=== PATIENT | male | born 1960 | race Caucasian/White ===

== ENCOUNTER 2023-09-27 12:10 | Emergency (ER) | payer MEDICARE, OTHER, SELFPAY ==
[2023-09-27 12:22] VITALS: BP 159/97
[2023-09-27 13:00] VITALS: BMI 24.4
[2023-09-27 13:03] LABS: % Basophils 0.6 % (0-2); % Immature Granulocytes 0.3 % (0-0.5); % Lymphocytes 40.1 % (20.5-51.1); % Monocytes 12.1 % (1.7-9.3); % Neutrophils 45.9 % (42.2-75.2); Absolute Lymphocytes 1.3 10^3/uL (1.2-3.4); Absolute Monocytes 0.4 10^3/uL (0.1-0.6); Absolute Neutrophils 1.4 10^3/uL (1.4-6.5); Hematocrit 40.2 % (39.0-52.0); Hemoglobin 13.4 g/dL (13.0-18.0); Mean Corp Hgb Conc. 33.3 g/dL (33.0-37.0); Mean Corpuscular Hgb 30.7 pg (27.0-31.0); Mean Platelet Volume 9.9 fL (7.4-10.4); Nucleated Red Blood Cells % 0 % (-); Platelet Count 191 10^3/uL (130-400); Red Blood Cell Count 4.37 10^6/uL (4.70-6.10); Red Cell Dist. Width 13.8 % (11.5-14.5); White Blood Cell Count 3.1 10^3/uL (4.8-10.8)
[2023-09-27 13:52] LABS: ALT (SGPT) 20 U/L (0-50); AST (SGOT) 32 U/L (17-59); Albumin 4.1 g/dl (3.5-5.0); Alkaline Phosphatase 88 U/L (38-126); Blood Urea Nitrogen 15 mg/dl (9-20); Calcium 8.7 mg/dl (8.4-10.2); Carbon Dioxide 27 mmol/L (22-30); Chloride 107 mmol/L (98-107); Estimated Creatinine Clearance 112 ml/min; Glucose 87 mg/dl (70-99); Potassium 4.4 mmol/L (3.5-5.1); Sodium 137 mmol/L (135-145); Total Bilirubin 0.4 mg/dl (0.2-1.3); Total Protein 6.5 g/dl (6.3-8.2); eGFR > 60.00
[2023-09-27 13:54] LABS: TSH Reflex To Free T4 0.87 uIU/ml (0.47-4.68)
--- NOTE | 2023-09-27 13:59 | ED.GENMED ---
History of Present Illness
General
Chief Complaint: Blood Pressure Problem
Source: patient
Exam Limitations: none
Time Seen by Provider: 09/27/23 12:33
Nursing documentation reviewed up to this point in time: agreed with
Travel History
Have you had any contact with someone who has COVID-19?: No
Do you have any symptoms of coronavirus? Fever > 100 degrees, chills, cough, shortness of breath, sore throat, loss of taste or smell, muscle aches, or headache?: No
History of Present Illness
History of Present Illness:
pt is a 63 y/o M with h/o htn
was on lisinopril 5 mg but says that he took himself off beause his bps were normal
then about a few weeksago he had some palpitations so he recently saw dr. friedman from cardiology who watned him to check his pressures twic ea day and write them down for 2 weeks and drop off the log
he gave him metoprolol tartrate 25 mg to take as needed whic hpt has not taken
he says that he was very stressed by something that happened at work yesterday. then he slept over a friends house where he was dog sitting and woke up and had to go home to his house to check on his cat
he felt a ltitle overwhelmed
his bp this mornig was 170/80 and he says he didn't feel well, was just not himself and he was cold and felt chills
no fever, sore throat, vomiting, cp, sob, cough, headache, blurry vision
pt then took lisoinpril and now feels better
Past History
Past History
ED Past Medical History: HTN
ED Past Surgical History: Orthopedic (Knee arthroscopy)
Social History
Tobacco: Non-smoker
Alcohol: Occasional
Drug: None
Personal: Single
Living: alone
Employment: Employed
Review of Systems
Review of Systems
Allergies reviewed?: Yes
All Other Systems: Not applicable
Phy Exam
Physical Exam
Physical Exam:
GENERAL: Alert , in no apparent distress
EYE: pupils equal and reactive
NECK: Supple
ENT: o/p clr, mmm.
CARDIAC: Regular rate and rhythm .
LUNGS: Clear breath sounds bilaterally, no acute respiratory distress, no wheezes/rales/rhonchi
ABDOMEN: Soft, without focal tenderness, no r/g, no cvat, normal bowel sounds
NEUROLOGICAL: Alert and oriented, no focal neuro deficits
SKIN: Warm and dry, skin intact.
MUSCULOSKELETAL: No edema, well perfused.
PSYCH: Normal and appropriate interaction.
Course
Orders/Labs/Results
Orders:
Orders
09/27/23 12:52
Complete Blood Count/With Diff Urgent
Comprehensive Metabolic Panel Urgent
TSH Reflex To Free T4 Urgent
09/27/23 13:32
Electrocardiogram (*1) Urgent
Reason for Study: Other
Other Reason for Exam: hypertension
EKG- Treatment ONCE
Abnormal Lab Results
09/27/23
12:52
WBC 3.1 L 10^3/uL
(4.8-10.8)
RBC 4.37 L 10^6/uL
(4.70-6.10)
Monocytes % 12.1 H %
(1.7-9.3)
09/27/23 12:52
09/27/23 12:52
Vital Signs
Initial and Last Documented VS:
Initial Vital Signs
Temp Pulse Resp BP Pulse Ox
97.7 F 65 18 159/97 97
09/27/23 12:22 09/27/23 12:22 09/27/23 12:22 09/27/23 12:22 09/27/23 12:22
Last Documented Vital Signs
Temp Pulse Resp BP Pulse Ox
97.7 F 65 18 130/77 98
09/27/23 12:22 09/27/23 12:22 09/27/23 12:22 09/27/23 14:19 09/27/23 13:00
MDM/Problems Addressed
Differential Diagnosis Includes:
hypertension, stress, anxiety
MDM/Problems Addressed:
63 y/o M h/o HTN but took himself off meds
this morning felt flushed and not well and took his bp and itwas elevated
he restarted his lisinopril and now feels better
had a lot of stress yetsterday
here he is asympatomtaic
no fever
bp came down to 130/80
ekg normal sinus no ishcemia
labs unreamrkable
d/c home
*Critical Care Note
Total Time (30-74mins, 75-104mins- exclusive of procedures): Not Applicable
ED Attending Note
-
Portions of this chart may have been created with voice recognition software.� Occasional wrong word or��sound alike� substitutions may have occurred due to the inherent limitations of voice recognition software.
Discharge Plan
Departure
Patient Disposition: Home (Routine Discharge)
Date of Disposition: 09/27/23
Time of Disposition: 14:07
Patient with high blood pressure during this ER visit?: Yes
Condition: Fair
Covid-19: Not Applicable
Discharge Problem:
Hypertension
Instructions: High Blood Pressure (DC)
Prescriptions:
No Action
lisinopril 5 mg Tablet
5 mg PO DAILY
metoprolol tartrate 25 mg Tablet
25 mg PO DAILY PRN (Reason: heart palpitations/tachycardia)
Referrals:
UNKNOWN - PT DOES,NOT KNOW [Family Provider] -
Activity Restrictions/Additional Instructions:
YOUR BLOOD PRESSURE CAME DOWN OVER TIME WHILE YOU WERE HERE.
YOU SHOULD TAKE YOUR LOG TO THE MOBILE HOME TECHNICIAN
IF YOU NEED TO TAKE A DOSE OF LISINOPRIL DAILY UNTIL YOU SEE THE MOBILE HOME TECHNICIAN THAT IS REASONABLE
RETURN FOR: SEVERE SYMPTOMS, PASSING OUT, CHEST PAIN, SHORTNESS OF BREATH, ETC.
YOUR EKG AND BLOOD WORK WAS REASSURING.
Interventions
Interventions:
*Risk Screen - Suicide Last Done: 09/27/23 13:00
*General Assessment Last Done: 09/27/23 12:22
*Neglect/Abuse Screening Last Done: 09/27/23 13:00
ED- Fall Risk Assessment Last Done: 09/27/23 13:00
*ED COVID-19 Vaccine History Last Done: 09/27/23 12:22
*Nursing Disposition Last Done: 09/27/23 14:24
ED- Cardiac Assessment Last Done: 09/27/23 13:00
ED- Neurological Assessment Last Done: 09/27/23 13:00
ED- Pulmonary Assessment Last Done: 09/27/23 13:00
Discharge Date and Time
Discharge Date/Time: 09/27/23 14:25
[2023-09-27 14:19] VITALS: BP 130/77
== END 2023-09-27 14:25 | disposition home or self-care (01) ==
LOC: EMR 12:10
PROVIDERS: Physician Assistant; EMERGENCY PHYSICIAN Emergency Medicine
DX: I10 Essential (primary) hypertension (principal)
CPT/HCPCS: 99284; 80053; 84443; 85025; 93005

== ENCOUNTER → 2024-05-28 07:32 | Outpatient (REF) | payer MEDICARE, OTHER, SELFPAY | LOC: PAVMRI 07:32 | PROVIDERS: ATTENDING PHYSICIAN Physician Assistant; FAMILY PHYSICIAN Family Medicine | DX: H90.A22 Sensorineural hearing loss, unilateral, left ear, with restricted hearing on the contralateral side (principal) | CPT/HCPCS: 70553; A9575 ==

== ENCOUNTER 2024-09-10 09:52 | Outpatient (RCR) | payer MEDICARE, OTHER, SELFPAY | END 2024-09-10 23:59 | disposition home or self-care (01) | LOC: ROT 09:52 | PROVIDERS: ATTENDING PHYSICIAN Orthopaedic Surgery | DX: M19.042 Primary osteoarthritis, left hand (principal); M19.049 Primary osteoarthritis, unspecified hand (principal); S63.502A Unspecified sprain of left wrist, initial encounter; S63.502D Unspecified sprain of left wrist, subsequent encounter; Z73.6 Limitation of activities due to disability; X58.XXXD Exposure to other specified factors, subsequent encounter; X58.XXXA Exposure to other specified factors, initial encounter | CPT/HCPCS: 97022; 97110; 97140; 97166; 97535 ==

== ENCOUNTER 2024-09-22 10:58 | Outpatient (RCR) | payer MEDICARE, OTHER, SELFPAY | END 2024-09-22 23:59 | disposition home or self-care (01) | LOC: ROT 10:58 | PROVIDERS: ATTENDING PHYSICIAN Orthopaedic Surgery | DX: M19.049 Primary osteoarthritis, unspecified hand (principal); S63.502A Unspecified sprain of left wrist, initial encounter; X58.XXXA Exposure to other specified factors, initial encounter; Z73.6 Limitation of activities due to disability; M19.042 Primary osteoarthritis, left hand; S63.502D Unspecified sprain of left wrist, subsequent encounter; X58.XXXD Exposure to other specified factors, subsequent encounter | CPT/HCPCS: 97018; 97022; 97110; 97140 ==

== ENCOUNTER 2025-02-07 11:14 | Emergency (ER) | payer MEDICARE, OTHER, SELFPAY ==
[2025-02-07 11:17] VITALS: BP 159/85
[2025-02-07 11:34] LABS: Hematocrit 43.3 % (39.0-52.0); Hemoglobin 14.5 g/dL (13.0-18.0); Mean Corp Hgb Conc. 33.5 g/dL (33.0-37.0); Mean Corpuscular Volume 92.9 fL (80.0-94.0); Nucleated Red Blood Cells % 0 % (-); Platelet Count 182 10^3/uL (130-400); Red Cell Dist. Width 13.4 % (11.5-14.5)
[2025-02-07 11:49] LABS: ALT (SGPT) 16 U/L (0-50); AST (SGOT) 22 U/L (17-59); Albumin 4.5 g/dl (3.5-5.0); Alkaline Phosphatase 84 U/L (38-126); Blood Urea Nitrogen 16 mg/dl (9-20); Calcium 8.7 mg/dl (8.4-10.2); Carbon Dioxide 26 mmol/L (22-30); Chloride 104 mmol/L (98-107); Glucose 120 mg/dl (70-99); Potassium 4.3 mmol/L (3.5-5.1); Sodium 134 mmol/L (135-145); Total Protein 6.9 g/dl (6.3-8.2); eGFR > 60.00
[2025-02-07 12:01] LABS: Troponin I < 0.012 ng/ml
[2025-02-07 12:15] VITALS: BP 146/93
[2025-02-07 12:18] VITALS: BMI 24.9
[2025-02-07 13:00] VITALS: BP 141/104
--- NOTE | 2025-02-07 13:06 | ED.GENMED ---
History of Present Illness
General
Chief Complaint: Dizziness
Time Seen by Provider: 02/07/25 12:38
History of Present Illness
History of Present Illness:
PAST MEDICAL HISTORY AND REVIEW OF OLD RECORDS
- The patient has a history of high blood pressure. The patient was seen here with high blood pressure concerns in the emergency department 2023.
Note:
CHIEF COMPLAINT(S)
Light-headedness and head pressure.
HISTORY OF PRESENT ILLNESS
The patient is a 64-year-old male who presented to the Emergency Room due to experiencing a sensation of light-headedness and pressure in the head. The symptoms started today and progressively worsened, although now the pressure persists more than
the dizziness. The patient described the head pressure as more concentrated around the sinus area. He recalls a previous similar episode many years ago after consuming alcohol. However, he clarified that this time he only had a couple of beers
yesterday at a baseball game, not to the point of intoxication. At work earlier today, he felt more light-headed, but feels somewhat improved currently. He was found to be neurologically intact upon examination.
REVIEW OF SYSTEMS
- Neurological: Light-headedness and head pressure.
- Respiratory: No reports of respiratory distress were discussed.
- Gastrointestinal: No reports of gastrointestinal symptoms were mentioned.
PHYSICAL EXAM
General: Alert, no acute distress.
Skin: Warm, dry.
Head: Normocephalic, atraumatic.
Neck: Supple, trachea midline.
Eye, Ears, Nose, Mouth, and Throat: Oral mucosa moist.
Cardiovascular: Normal peripheral perfusion, No edema.
Respiratory: Respirations are non-labored.
Gastrointestinal: Abdomen nondistended.
Back: Normal range of motion, Normal alignment.
Musculoskeletal: Normal range of motion, normal strength.
Neurological: Alert and oriented to person, place, time, and situation, No focal neurological deficit observed. Stroke scale is zero per examination. Normal finger-nose testing.
Psychiatric: Cooperative, appropriate mood but somewhat of a flat affect
PROBLEM LIST
Acute:
- Light-headedness
- Head pressure
PLAN
- Administration of intravenous fluids.
- Review of blood work which was mentioned as normal.
- A consideration for a CT scan of the brain due to head pressure.
- Continued monitoring for symptom improvement.
DIFFERENTIAL DIAGNOSIS
The Differential Diagnosis includes, in no particular order and is not limited to:
- Dehydration
- Sinusitis
- Hypertension
- Benign paroxysmal positional vertigo (BPPV)
- Orthostatic hypotension
- Migraine
- Tension headache
- Acute alcohol withdrawal
- Electrolyte imbalance
- Transient ischemic attack (TIA)
RADIOLOGY
- Considered CT head however the patient has no significant headache but reports some facial discomfort that he thinks may be a sinus issue and has a normal neurologic examination
EKG
- Sinus 57, normal axis, no acute ST abnormality, normal intervals
LABS
- White count hemoglobin are normal, sodium slightly low 134, glucose 120, troponin less than 0.012
UPDATE
-SUMMARY OF ENCOUNTER
The 64-year-old male patient presented to the Emergency Department with light-headedness and head pressure, which began earlier in the day. Upon evaluation, he was found to be neurologically intact, and his bloodwork, including sodium levels,
returned normal results. Intravenous fluids were administered. Cardiac monitoring did not reveal any alarming signs, and his blood pressure was noted to be slightly elevated but not concerning. Symptoms along the sinuses prompted consideration of
potential sinus congestion or another cause such as heartburn, for which famotidine (Pepcid) was considered.
PLAN
The plan involved administering a dose of famotidine for suspected heartburn and recommending the patient follow up with his primary care doctor as an outpatient.
INDEPENDENT REVIEW OF LABS AND INTERPRETATION OF TESTS
My independent review of the blood work showed results within normal limits, with sodium levels only marginally outside the normal range.
MEDICATION RECONCILIATION
Famotidine 20 mg was administered before discharge for heartburn relief.
MEDICAL DECISION MAKING
-Complexity of Data Reviewed:
The differential diagnosis considered possible causes such as dehydration, sinusitis, hypertension, benign paroxysmal positional vertigo (BPPV), orthostatic hypotension, migraine, tension headache, acute alcohol withdrawal, electrolyte imbalance,
and transient ischemic attack (TIA).
-Data:
Category 1
The following tests were reviewed or considered: electrolytes, specifically sodium level, as part of the blood work which was found to be within normal limits.
Category 3
Discussion of management with the patient included assessing the current lack of emergency findings and deciding on outpatient follow-up with primary care.
-Risk:
Consideration of Admission/Observation: Escalation of care, including admission/observation, was considered given the complexity and risk of the patients presenting complaint, exam findings, and/or their underlying comorbidities. However,
ultimately, I feel the patient is safe for outpatient management with close follow-up. Reasoning: Work-up is reassuring and does not reveal any acute life-threatening processes, the patients symptoms are well controlled upon reevaluation,
reexamination is reassuring, vitals are stable, patient agreeable with discharge, and reliable for follow-up.
DIAGNOSIS
- Lightheadedness
- Heartburn
Unclear etiology of patient's symptoms. On reassessment he does have some facial pressure. No clear indication for antibiotics for sinusitis. He appears well-hydrated. He did receive a liter of fluid. After he ate he had some of his typical
heartburn. Will give a dose of Pepcid prior to discharge.
Past History
Past History
ED Past Medical History: HTN
ED Past Surgical History: Orthopedic (Knee arthroscopy)
Social History
Tobacco: Non-smoker
Alcohol: Occasional
Drug: None
Personal: Single
Living: alone
Employment: Employed
Phy Exam
Physical Exam
Physical Exam:
See HPI
Course
Orders/Labs/Results
Orders:
Orders
02/07/25 11:19
Electrocardiogram (*1) Urgent
Reason for Study: Vertigo / Dizzy
EKG- Treatment ONCE
02/07/25 11:24
Complete Blood Count/With Diff Urgent
Comprehensive Metabolic Panel Urgent
Troponin I Urgent
02/07/25 13:34
0.9% Sodium Chloride 1000 ml [Nss] 1,000 ml IV BOLUS
02/07/25 15:51
Famotidine [Pepcid] 20 mg IV NOW STA
Abnormal Lab Results
02/07/25
11:24
RBC 4.66 L 10^6/uL
(4.70-6.10)
MCH 31.1 H pg
(27.0-31.0)
Sodium 134 L mmol/L
(135-145)
Glucose 120 H mg/dl
(70-99)
02/07/25 11:24
02/07/25 11:24
Vital Signs
Initial and Last Documented VS:
Initial Vital Signs
Temp Pulse Resp BP Pulse Ox
36.7 C 62 16 159/85 98
02/07/25 11:17 02/07/25 11:17 02/07/25 11:17 02/07/25 11:17 02/07/25 11:17
Last Documented Vital Signs
Temp Pulse Resp BP Pulse Ox
36.7 C 69 18 139/76 99
02/07/25 11:17 02/07/25 14:30 02/07/25 14:30 02/07/25 14:00 02/07/25 14:30
*Pulse Oximetry
SaO2: 99
Oxygen Mode of Delivery: Room air
Patient hypoxic: no
*Critical Care Note
Total Time (30-74mins, 75-104mins- exclusive of procedures): Not Applicable
ED Attending Note
-
Portions of this chart may have been created with voice recognition software.� Occasional wrong word or��sound alike� substitutions may have occurred due to the inherent limitations of voice recognition software.
Discharge Plan
Departure
Patient Disposition: Home (Routine Discharge)
Date of Disposition: 02/07/25
Time of Disposition: 15:51
Patient with high blood pressure during this ER visit?: Yes
Discharge Problem:
Lightheadedness
Instructions: Dizziness, BLOOD PRESSURE
Prescriptions:
No Action
lisinopril 5 mg Tablet
5 mg PO DAILY
Referrals:
NONE,* [Family Provider, Internal Medicine]
Activity Restrictions/Additional Instructions:
The cause of your symptoms is unclear. Other than slightly high blood pressure, your vital signs are normal. EKG was unremarkable. Cardiac blood work shows no sign of heart attack. Your white blood cell count is normal. Your hemoglobin level is
normal. Return here if worse or other concerns. We gave you dose of Pepcid prior to discharge and that we also gave you a liter of fluid.
Interventions
Interventions:
*Risk Screen - Suicide Last Done: 02/07/25 11:17
*General Assessment Last Done: 02/07/25 12:19
*Neglect/Abuse Screening Last Done: 02/07/25 11:17
*ED- Fall Risk Assessment Last Done: 02/07/25 12:10
*ED COVID-19 Vaccine History Last Done: 02/07/25 12:19
*Nursing Disposition Last Done: 02/07/25 16:27
ED- Neurological Assessment Last Done: 02/07/25 13:30
ED- Cardiac Assessment Last Done: 02/07/25 13:30
Discharge Date and Time
Discharge Date/Time: 02/07/25 16:27
Print Language: TURKMEN
[2025-02-07] MEDS: NSS 1000 IV (13:38)
[2025-02-07 14:00] VITALS: BP 139/76
[2025-02-07] MEDS: PEPCID 20 MG IV (15:59)
== END 2025-02-07 16:27 | disposition home or self-care (01) ==
LOC: EMR 11:14
PROVIDERS: Emergency Medicine; EMERGENCY PHYSICIAN Emergency Medicine
DX: R42 Dizziness and giddiness (principal); R12 Heartburn; I10 Essential (primary) hypertension
CPT/HCPCS: 96374; 96361; 99284; 80053; 84484; 85025; 93005

== ENCOUNTER 2025-02-11 19:41 | Emergency (ER) | payer MEDICARE, OTHER, SELFPAY ==
[2025-02-11 19:43] VITALS: BP 150/87
[2025-02-11 20:12] LABS: Hematocrit 43.4 % (39.0-52.0); Hemoglobin 14.9 g/dL (13.0-18.0); Mean Corp Hgb Conc. 34.3 g/dL (33.0-37.0); Mean Corpuscular Volume 91.6 fL (80.0-94.0); Nucleated Red Blood Cells % 0 % (-); Platelet Count 180 10^3/uL (130-400); Red Cell Dist. Width 13.2 % (11.5-14.5)
[2025-02-11 20:34] LABS: ALT (SGPT) 19 U/L (0-50); AST (SGOT) 27 U/L (17-59); Albumin 4.8 g/dl (3.5-5.0); Alkaline Phosphatase 76 U/L (38-126); Blood Urea Nitrogen 15 mg/dl (9-20); Calcium 8.6 mg/dl (8.4-10.2); Carbon Dioxide 25 mmol/L (22-30); Chloride 97 mmol/L (98-107); Glucose 128 mg/dl (70-99); Potassium 4.1 mmol/L (3.5-5.1); Sodium 131 mmol/L (135-145); Total Protein 7.5 g/dl (6.3-8.2); eGFR > 60.00
[2025-02-11 20:36] LABS: Lipase 66 U/L (23-300)
[2025-02-11 20:44] LABS: Troponin I < 0.012 ng/ml
--- NOTE | 2025-02-11 23:24 | ED.GENMED ---
History of Present Illness
General
Chief Complaint: Dizziness
Source: patient
Exam Limitations: none
Time Seen by Provider: 02/11/25 23:22
Nursing documentation reviewed up to this point in time: agreed with
History of Present Illness
History of Present Illness:
Note:
CHIEF COMPLAINT(S)
Chest tightness and lightheadedness
HISTORY OF PRESENT ILLNESS
The patient is a 64-year-old male with pmh of htn who presented with chest tightness and lightheadedness that began while at work. The patient described the chest tightness as persistent since the onset, occurring primarily on the left side of the
chest. The patient reported no improvement in the symptoms at the time and suddenly his symptoms resolved. The patient also mentioned feeling lightheaded but denied dizziness and shortness of breath. Deneis syncope. The symptoms have been ongoing
since Friday intermittently, with no clear trigger other than work. The patient reported a history of atrial fibrillation identified on a Holter monitor on three occasions, though no blood thinners were prescribed. Prior tests such as an
echocardiogram and troponin level were normal, and a computed tomography (CT) scan of the head was also performed, which showed normal results. He denies any recent long distance travel. He denies any visual changes. Currently he has no symptoms
other than fatigue. He denies abdominal pain, vomiting, fevers, chills.
CHRONIC MEDICAL CONDITIONS SIGNIFICANTLY AFFECTING CARE
HTN
GERD
PHYSICAL EXAM
General: Patient is well appearing and in no acute distress; non-toxic
Skin: Warm and dry, no rashes or lesions
Head: Normocephalic, atraumatic
Eyes: Sclera non-icteric. EOMs intact.
Cardiac: Regular rate and rhythm, no murmurs
Peripheral Vascular: No lower ext swelling or edema
Pulm: Normal respiratory effort, no wheezes rales or rhonchi
Abdomen: No abdominal tenderness
Neuro: CN II-XII intact, no focal neurologic deficits.
Psychiatric: Depressed mood. Flat affect.
PLAN
1. Repeat cardiac testing, including cardiac enzyme tests.
2. Administer fluids
3. CXR
DIFFERENTIAL DIAGNOSIS
The Differential Diagnosis includes, in no particular order and is not limited to:
1. Atrial fibrillation
2. Acute coronary syndrome
3. Myocardial infarction
4. Pulmonary embolism
5. Anxiety/panic attack
6. Arrhythmia
7. Costochondritis
8. Gastroesophageal reflux disease (GERD)
9. Pericarditis
10. Aortic dissection
CHART REVIEW
14 Mar, 2023 ' Palpitations (ICD-10 - R00.2) Reviewed ER records from 03/19 and 03/26. Patient's concerns are very vague, mood incredibly flat and depressed, despite patient denying anxiety or depression. Neuro exam unremarkable, no acute signs of
sinusitis. Try ibuprofen for headache and monitor. Will recheck labs for other potential underlying causes of symptoms. BP is perfect today, HR 84 in office.Offered repeat EKG today, declined. Reassured that HR of under 110 and BP under 160/100
without additional symptoms are stable to call office for guidance rather than immediately going to ER. Patient informed of and confirmed understanding of red flag signs to call the office or seek emergency medical attention. Given persistent
sensation of palpitations, referred to cardiology for further work up. Discussed with patient that, pending other results, it is a possibility that his mental health may be playing a role in how he is feeling'
MDM/Disposition
The patient is a 64-year-old male with pmh of htn who presented with chest tightness and lightheadedness that began while at work. Symptoms resolved by the time of my evaluation and he just notes some fatigue. He has been evaluated by a caridologist
in the past. Dr Luciano. Today he had an unremarkable workup---normal cxr, unremarkable cardiac monitoring, normal ecg, normal troponins. No clear etiology to patient's symptoms at this time. Patient belives it may be related to his sinuses.
Discussed strict return precautions and follow up with cards and pcp.
Past History
Past History
ED Past Medical History: HTN
ED Past Surgical History: Orthopedic (Knee arthroscopy)
Social History
Tobacco: Non-smoker
Alcohol: Occasional
Drug: None
Personal: Single
Living: alone
Employment: Employed
Review of Systems
Review of Systems
All Other Systems: ROS reviewed and negative except as documented in HPI and ROS
Phy Exam
Physical Exam
Physical Exam:
see hpi
Course
Orders/Labs/Results
Orders:
Orders
02/11/25 19:50
Electrocardiogram (*1) Urgent
Reason for Study: Chest Pain
CT Head W/o Iv Contrast Urgent
Comment:
Reason For Exam: dizziness
02/11/25 19:51
EKG- Treatment ONCE
02/11/25 20:05
Complete Blood Count/With Diff Urgent
Comprehensive Metabolic Panel Urgent
Lipase Urgent
Troponin I Urgent
02/12/25 00:06
Electrocardiogram (*1) Urgent
Reason for Study: Chest Pain
Orthostatic VS- Treatment ONCE
CR Chest - 2 Views Urgent
Comment:
Reason For Exam: chest pain
02/12/25 00:11
0.9% Sodium Chloride 500 ml [Nss] 500 ml IV BOLUS
02/12/25 00:17
Troponin I Urgent
Abnormal Lab Results
02/11/25
20:05
MCH 31.4 H pg
(27.0-31.0)
Sodium 131 L mmol/L
(135-145)
Chloride 97 L mmol/L
(98-107)
Glucose 128 H mg/dl
(70-99)
02/11/25 20:05
02/11/25 20:05
Vital Signs
Initial and Last Documented VS:
Initial Vital Signs
Temp Pulse Resp BP Pulse Ox
97.1 F 71 16 150/87 98
02/11/25 19:43 02/11/25 19:43 02/11/25 19:43 02/11/25 19:43 02/11/25 19:43
Last Documented Vital Signs
Temp Pulse Resp BP Pulse Ox
97.1 F 56 20 139/82 98
02/11/25 19:43 02/12/25 01:45 02/12/25 01:45 02/12/25 01:00 02/12/25 01:45
*Pulse Oximetry
SaO2: 98
Oxygen Mode of Delivery: Room air
Patient hypoxic: no
*Critical Care Note
Total Time (30-74mins, 75-104mins- exclusive of procedures): Not Applicable
ED Attending Note
-
Portions of this chart may have been created with voice recognition software.� Occasional wrong word or��sound alike� substitutions may have occurred due to the inherent limitations of voice recognition software.
Discharge Plan
Departure
Patient Disposition: Home (Routine Discharge)
Date of Disposition: 02/12/25
Time of Disposition: 01:39
Patient with high blood pressure during this ER visit?: Yes
Condition: Good
Discharge Problem:
Chest pain, Episodic lightheadedness
Instructions: Chest Pain CBC Follow Up, BLOOD PRESSURE
Prescriptions:
No Action
lisinopril 5 mg Tablet
5 mg PO DAILY
Referrals:
Saúl Murry DO [[facility]] - Call in 1-3 days for appt
Marcos Pennington MD [Family Provider, Internal Medicine]
Activity Restrictions/Additional Instructions:
Patient received a call from her strategy manager to set up a follow-up appointment within the next 2 days. If you do not receive a call, please contact them or schedule appointment. Please establish care with a primary care provider.
PLEASE RETURN EMERGENCY DEPARTMENT SHOULD YOU DEVELOP ACUTE WORSENING OF YOUR SYMPTOMS, CHEST PAIN, SHORTNESS OF BREATH, FAINTING SPELLS, DIZZINESS, VERTIGO, VISUAL LOSS, ANY OTHER SIGNS OR SYMPTOMS WORRISOME TO YOU.
Interventions
Interventions:
*Risk Screen - Suicide Last Done: 02/11/25 19:43
*General Assessment Last Done: 02/11/25 19:43
*Neglect/Abuse Screening Last Done: 02/11/25 19:43
*ED- Fall Risk Assessment Last Done: 02/11/25 23:49
*ED COVID-19 Vaccine History Last Done: 02/11/25 19:43
*Nursing Disposition Last Done: 02/12/25 02:06
ED- Neurological Assessment Last Done: 02/11/25 23:49
ED- Cardiac Assessment Last Done: 02/11/25 23:49
ED Swallowing Screen Last Done: 02/11/25 23:49
Discharge Date and Time
Discharge Date/Time: 02/12/25 02:08
Print Language: JAPANESE
[2025-02-11 23:47] VITALS: BP 117/76; BMI 24.1
[2025-02-12] VITALS: BP 123/90
[2025-02-12] MEDS: NSS 500 IV (00:18)
[2025-02-12 00:50] LABS: Troponin I < 0.012 ng/ml
[2025-02-12 00:52] VITALS: BP 123/74
[2025-02-12 00:54] VITALS: BP 126/83
[2025-02-12 00:55] VITALS: BP 127/87
[2025-02-12 00:59] VITALS: BP 123/74; BP 126/83; BP 127/87; PULSE 56; PULSE 59; PULSE 70
[2025-02-12 01:00] VITALS: BP 139/82
== END 2025-02-12 02:08 | disposition home or self-care (01) ==
LOC: EMR 19:41
PROVIDERS: Emergency Medicine; Physician Assistant; EMERGENCY PHYSICIAN Student in an Organized Health Care Education/Training Program; FAMILY PHYSICIAN Internal Medicine
DX: R07.89 Other chest pain (principal); R42 Dizziness and giddiness; R53.83 Other fatigue; I10 Essential (primary) hypertension; K21.9 Gastro-esophageal reflux disease without esophagitis; I48.91 Unspecified atrial fibrillation
CPT/HCPCS: 99285; 96360; 70450; 71046; 80053; 83690; 84484; 85025; 93005

== ENCOUNTER 2025-02-15 11:02 | Emergency (ER) | payer MEDICARE, OTHER, SELFPAY ==
[2025-02-15 11:04] VITALS: BP 135/79
[2025-02-15 11:09] VITALS: BP 135/79; BMI 25.2
[2025-02-15 11:30] LABS: Hematocrit 40.5 % (39.0-52.0); Hemoglobin 14.0 g/dL (13.0-18.0); Mean Corp Hgb Conc. 34.6 g/dL (33.0-37.0); Mean Corpuscular Volume 91.2 fL (80.0-94.0); Nucleated Red Blood Cells % 0 % (-); Platelet Count 172 10^3/uL (130-400); Red Cell Dist. Width 13.0 % (11.5-14.5)
--- NOTE | 2025-02-15 11:36 | ED.GENMED ---
History of Present Illness
General
Chief Complaint: Chest Pain
Time Seen by Provider: 02/15/25 11:21
History of Present Illness
History of Present Illness:
64-year-old male presents the emergency department for evaluation of recurrent chest pain, palpitations, lightheadedness, and anxiety that developed today. This is the 3rd or 4th such occasion in the past week and he was seen in this emergency
department twice previously. Workup was unrevealing both times. He states that the symptoms began while eating breakfast before improving but then recurred again while he attempted to play golf later in the morning. Symptoms have since resolved.
He was administered aspirin en route by EMS. He notes that this morning after eating breakfast his blood glucose was 303 by fingerstick monitor however recheck at urgent care was just over 100. He denies any chest pain or shortness of breath at
present. Denies any new medications with the exception of Augmentin that was started for sinusitis last week. Denies any illicit substance use or alcohol use. Does report increasing anxiety due to work stress
Past History
Past History
ED Past Medical History: HTN
ED Past Surgical History: Orthopedic (Knee arthroscopy)
Social History
Tobacco: Non-smoker
Alcohol: Occasional
Drug: None
Personal: Single
Living: alone
Employment: Employed
Review of Systems
Review of Systems
Allergies reviewed?: Yes
All Other Systems: ROS reviewed and negative except as documented in HPI and ROS
Phy Exam
Physical Exam
Physical Exam:
GEN: Well appearing, NAD, WDWN
HEENT: Oral mucosa moist, no scleral icterus
Cardiac: Regular rate and rhythm, no murmurs
Lung: No respiratory distress, no tachypnea, lungs clear to auscultation bilaterally
MSK: No gross deformity or injuries
Skin: Good color, no pallor or jaundice, no rashes
Neuro: AO x3, moves all extremities freely
Psych: Calm, cooperative
Scores
Heart Score for Chest Pain Patients
STEMI patient?: No
History: Slightly or Non-Suspicious
ECG: Normal
Age: >/= 65 years
Risk Factors: 1 or 2 Risk Factors
Troponin: </= Normal Limit
Heart Score for Chest Pain Patients: 3
Heart Score Risk: 2.5% MACE over next 6 weeks
Course
Orders/Labs/Results
Orders:
Orders
02/15/25 11:09
Electrocardiogram (*1) Urgent
Reason for Study: Chest Pain
EKG- Treatment ONCE
02/15/25 11:14
Complete Blood Count/With Diff Urgent
Comprehensive Metabolic Panel Urgent
TSH Reflex To Free T4 Urgent
Troponin I Urgent
02/15/25 11:36
Add On- LAB Urgent
Tests Added?: TSH w/ reflex
Abnormal Lab Results
02/15/25
11:14
RBC 4.44 L 10^6/uL
(4.70-6.10)
MCH 31.5 H pg
(27.0-31.0)
Monocytes % 9.8 H %
(1.7-9.3)
Sodium 132 L mmol/L
(135-145)
Glucose 100 H mg/dl
(70-99)
02/15/25 11:14
02/15/25 11:14
Vital Signs
Initial and Last Documented VS:
Initial Vital Signs
BP
135/79
02/15/25 11:04
Last Documented Vital Signs
Temp Pulse Resp BP Pulse Ox
98 F 67 16 130/80 99
02/15/25 11:09 02/15/25 13:29 02/15/25 11:09 02/15/25 14:28 02/15/25 13:29
MDM/Problems Addressed
MDM/Problems Addressed:
Workup was broadly unremarkable. Suspect somatoform disorder however cannot definitively rule out transient cardiac dysrhythmia thus recommend he follow-up with cardiology as was encouraged to him after last visit. He is provide with a short
bridge prescription for hydroxyzine for anxiolysis should symptoms recur
Comment
Comment:
EKG independently interpreted by me shows normal sinus rhythm at a rate of [address] changes, there is patient motion artifact inferiorly that limits interpretation however no significant changes compared to February 11, 2025 tracing
*Pulse Oximetry
SaO2: 100
Oxygen Mode of Delivery: Room air
Patient hypoxic: no
*Critical Care Note
Total Time (30-74mins, 75-104mins- exclusive of procedures): Not Applicable
ED Attending Note
-
Portions of this chart may have been created with voice recognition software.� Occasional wrong word or��sound alike� substitutions may have occurred due to the inherent limitations of voice recognition software.
Discharge Plan
Departure
Patient Disposition: Home (Routine Discharge)
Date of Disposition: 02/15/25
Time of Disposition: 14:16
Patient with high blood pressure during this ER visit?: No
Discharge Problem:
Heart palpitations
Instructions: Palpitations - ED discharge instructions
Prescriptions:
New
hydroxyzine pamoate 25 mg capsule
25 - 50 mg PO TID PRN (Reason: anxiety) Qty: 20 0RF
No Action
lisinopril 5 mg Tablet
5 mg PO DAILY
Referrals:
Marcos Pennington MD [Family Provider, Internal Medicine]
Activity Restrictions/Additional Instructions:
Follow-up with your primary care physician to discuss further antianxiety medications
Follow-up with cardiology to discuss wearable surveillance monitor from heart problem
Interventions
Interventions:
*Risk Screen - Suicide Last Done: 02/15/25 11:11
*General Assessment Last Done: 02/15/25 11:11
*Neglect/Abuse Screening Last Done: 02/15/25 11:11
*ED- Fall Risk Assessment Last Done: 02/15/25 11:11
*ED COVID-19 Vaccine History Last Done: 02/15/25 11:11
*Nursing Disposition Last Done: 02/15/25 14:30
ED- Cardiac Assessment Last Done: 02/15/25 11:11
Discharge Date and Time
Discharge Date/Time: 02/15/25 14:30
Print Language: TELUGU
[2025-02-15 11:54] LABS: ALT (SGPT) 15 U/L (0-50); AST (SGOT) 23 U/L (17-59); Albumin 4.5 g/dl (3.5-5.0); Alkaline Phosphatase 88 U/L (38-126); Blood Urea Nitrogen 13 mg/dl (9-20); Calcium 8.8 mg/dl (8.4-10.2); Carbon Dioxide 24 mmol/L (22-30); Chloride 101 mmol/L (98-107); Estimated Creatinine Clearance 111 ml/min; Glucose 100 mg/dl (70-99); Potassium 3.9 mmol/L (3.5-5.1); Sodium 132 mmol/L (135-145); Total Protein 6.8 g/dl (6.3-8.2); eGFR > 60.00
[2025-02-15 12:00] VITALS: BP 140/74
[2025-02-15 12:15] LABS: Troponin I < 0.012 ng/ml
[2025-02-15 12:28] VITALS: BP 156/82
[2025-02-15 13:00] VITALS: BP 154/78
[2025-02-15 14:28] VITALS: BP 130/80
== END 2025-02-15 14:30 | disposition home or self-care (01) ==
LOC: EMR 11:02
PROVIDERS: EMERGENCY PHYSICIAN Emergency Medicine; FAMILY PHYSICIAN Internal Medicine
DX: R00.2 Palpitations (principal); F41.9 Anxiety disorder, unspecified; I10 Essential (primary) hypertension; Z56.6 Other physical and mental strain related to work
CPT/HCPCS: 99283; 80053; 84443; 84484; 85025; 93005

== ENCOUNTER → 2025-03-03 15:49 | Outpatient (REF) | payer MEDICARE, OTHER, SELFPAY | LOC: HWRCS 15:49 | PROVIDERS: ATTENDING PHYSICIAN Nurse Practitioner Gerontology; FAMILY PHYSICIAN Internal Medicine | DX: R07.89 Other chest pain (principal) | CPT/HCPCS: 93306 ==

== ENCOUNTER → 2025-03-04 10:18 | Outpatient (REF) | payer MEDICARE, OTHER, SELFPAY | LOC: RCS 10:18 | PROVIDERS: ATTENDING PHYSICIAN Nurse Practitioner Gerontology; FAMILY PHYSICIAN Internal Medicine | DX: R07.89 Other chest pain (principal) | CPT/HCPCS: 93017 ==